=== PATIENT | female | born 1945 | race Caucasian/White ===

== ENCOUNTER → 2016-11-24 | Outpatient (CLI) | payer OTHER | LOC: MMPC 09:00 | PROVIDERS: ATTEND Student in an Organized Health Care Education/Training Program | DX: G25.81 Restless legs syndrome (principal) | CPT/HCPCS: 99213; G0463 ==

== ENCOUNTER → 2017-03-08 | Outpatient (CLI) | payer OTHER ==
[2017-03-08 16:01] LABS: BUN/CREATININE RATIO 19.23 (6-20); MAGNESIUM 1.6 mg/dL (1.6-2.4)
== END ==
LOC: MOB LAB 14:49
PROVIDERS: ATTEND Nurse Practitioner
DX: G25.81 Restless legs syndrome (principal); I10 Essential (primary) hypertension
CPT/HCPCS: 36415; 80048; 82550; 83735

== ENCOUNTER → 2017-04-17 | Outpatient (CLI) | payer OTHER | LOC: MMPC 11:11 | PROVIDERS: ATTEND Nurse Practitioner | DX: M70.61 Trochanteric bursitis, right hip (principal); F41.8 Other specified anxiety disorders; K59.04 Chronic idiopathic constipation; G25.81 Restless legs syndrome | CPT/HCPCS: 99214; G0463 ==

== ENCOUNTER → 2017-04-23 | Outpatient (CLI) | payer OTHER ==
--- NOTE | 2017-04-23 16:08 | DI ---
XR HIP COMPLETE MIN 2VW U/L,04/23/2017 3:01 PM: Clinical History: Trochanteric bursitis the right hip. Previous Exam: None at this facility. Findings: 3 views of the right hip are obtained, and demonstrate anatomic alignment without fractures. The hip is anatomic. No fractures are seen. There is a large dense calcification within the deep pelvis. Multiple peripheral vascular calcifications are seen. The lumbar spine is unremarkable. Impression: Large dystrophic calcification within the right deep pelvis most likely representing a calcified gran uloma. Normal right hip.
--- NOTE | 2017-04-23 16:14 | DI ---
XR L-SPINE 2-3 VW,04/23/2017 3:44 PM: Clinical History: Low back pain Previous Exam: None at this facility. Findings: AP, lateral and coned-down views of the lumbar spine are obtained, and demonstrate diffuse osteopenia . There is loss of intervertebral disc height at L5/S1. Peripheral vascular calcifications are seen. Patient is status post cholecystectomy. A nonobstructive bowel gas pattern is seen. Impression: Mild degenerative changes of lumbar spine otherwise unremarkable.
== END ==
LOC: ORTHO 15:13
PROVIDERS: ATTEND Orthopaedic Surgery
DX: M25.551 Pain in right hip (principal); M70.61 Trochanteric bursitis, right hip; M47.816 Spondylosis without myelopathy or radiculopathy, lumbar region
CPT/HCPCS: 72100; 73502

== ENCOUNTER → 2017-05-03 | Outpatient (CLI) | payer OTHER ==
--- NOTE | 2017-05-03 18:58 | DI ---
MRI LUMBAR SPINE SCAN WITHOUT IV CONTRAST, 05/03/2017 3:00 PM: Clinical History: Multilevel lumbar spinal canal stenosis. Previous Exam: None. Technique: Sagittal and axial T2 weighted; sagittal T1 weighted and T2 STIR; and axial PD. The lumbar vertebral bodies are of normal height and size. There is an old compression fracture of T1 2 with loss of height of at least 50% anteriorly. There is moderately severe to severe disc space damian rowing at L1-2, L3-4, and L5-S1 with mild narrowing at L2-3. All lumbar disc spaces show desiccation change. The cord terminates at T12 and the conus medullaris is normal. There are bulging but not santiago iated discs without canal or neural foraminal stenosis from T10-11 through L1-2. There is a herniated disc fragment arising from L2-3 that has migrated superiorly on the right side behind the body of L2 and is causing right neural foraminal stenosis and may be causing impingement of the right L2 nerve root as it passes through the neural foramen. There is no canal or left neural foraminal stenosis. L3 -4 has a circumferentially bulging but not herniated disc with hypertrophic changes of the apophyseal joints and the ligamentum flavum producing spinal canal stenosis without significant neural foramina l stenosis. L4-5 has a circumferentially bulging but not herniated disc without canal or neural julia inal stenosis. L5-S1 has a grade 1 reverse spondylolisthesis with a left anterolateral disc herniatio n that is displacing the left S1 nerve root posteriorly. There is no canal or neural foraminal stenos is. Readin. There is a right-sided disc fragment behind the body of L2 probably arising from the L2-3 disc sp aditya. This is causing right neural foraminal stenosis and may be producing impingement of the right L2 nerve root. There is no canal or left neural foraminal stenosis. 2. There is a left anterolateral L5-S1 disc herniation that is causing impingement of the left S1 ne rve root. There is no canal or neural foraminal stenosis. There is a grade 1 reverse spondylolisthesi s at this level. 3. There are bulging but not herniated discs without canal or significant neural foraminal stenosis from T10-11 through L1-2 and at L3-4 and L4-5. 4. There is an old compression fracture of T12 with loss of height by 50%.
== END ==
LOC: MRI 14:55
PROVIDERS: ATTEND Orthopaedic Surgery
DX: M48.06 Spinal stenosis, lumbar region (principal); M47.26 Other spondylosis with radiculopathy, lumbar region; M51.17 Intervertebral disc disorders with radiculopathy, lumbosacral region
CPT/HCPCS: 72148

== ENCOUNTER → 2017-05-14 | Outpatient (CLI) | payer OTHER | LOC: MMPC 10:00 | PROVIDERS: ATTEND Orthopaedic Surgery | DX: M48.06 Spinal stenosis, lumbar region (principal); G95.19 Other vascular myelopathies | CPT/HCPCS: 99213; G0463 ==

== ENCOUNTER → 2017-05-30 | Outpatient (CLI) | payer OTHER ==
--- NOTE | 2017-05-30 23:22 | DI ---
XR L-SPINE 2-3 VW,05/30/2017 4:12 PM: Clinical History: Back pain Previous Exam: April 23, 2017 Findings: Flexion and extension views of the lumbar spine are obtained, and demonstrate diffuse peripheral vasc ular disease. Patient is status post cholecystectomy. There is no instability. There is mild loss of intervertebral disc height at the L5/S1 level. Impression: Mild degenerative changes of the lumbar spine without evidence of instability on flexion or extension .
== END ==
LOC: RAD 16:19
PROVIDERS: ATTEND Physician Assistant
DX: M47.26 Other spondylosis with radiculopathy, lumbar region (principal); M51.16 Intervertebral disc disorders with radiculopathy, lumbar region; M48.06 Spinal stenosis, lumbar region
CPT/HCPCS: 72100; 99203; G0463

== ENCOUNTER → 2017-06-06 | Outpatient (CLI) | payer OTHER | LOC: MMPC 10:00 | PROVIDERS: ATTEND Neurological Surgery | DX: M79.604 Pain in right leg (principal); M79.605 Pain in left leg; M54.5 Low back pain; M51.17 Intervertebral disc disorders with radiculopathy, lumbosacral region; M51.16 Intervertebral disc disorders with radiculopathy, lumbar region; R29.2 Abnormal reflex; I73.9 Peripheral vascular disease, unspecified | CPT/HCPCS: 99214; G0463 ==

== ENCOUNTER → 2017-06-14 | Outpatient (CLI) | payer OTHER | LOC: CT 13:42 | PROVIDERS: ATTEND Neurological Surgery | DX: N28.9 Disorder of kidney and ureter, unspecified (principal) | CPT/HCPCS: 36415; 82565; 84520 ==

== ENCOUNTER → 2017-06-15 | Outpatient (CLI) | payer OTHER ==
--- NOTE | 2017-06-15 12:34 | DI ---
History: Trauma Comparison: None Findings: No prevertebral soft tissue swelling. No compression fracture. Vertebral body heights and intervertebral disc spaces are well maintained. Lateral masses are normally aligned. Dens intact. No facet malalignment Transverse foramina are intact. Impression: Unremarkable CT scan of the cervical spine.
== END ==
LOC: MRI 10:51
PROVIDERS: ATTEND Neurological Surgery
DX: M54.12 Radiculopathy, cervical region (principal)
CPT/HCPCS: 72141